=== PATIENT | female | born 1940 | race Two or more races ===

== ENCOUNTER 2021-07-18 11:02 | Outpatient (CLI) | payer MEDICARE, OTHER ==
[2021-07-18 14:53] LABS: BILIRUBIN,URINE NEGATIVE (NEGATIVE); COLOR,URINE YELLOW (YELLOW); LEUKOCYTE ESTERASE ,URINE SMALL (NEGATIVE); NITRITE, URINE NEGATIVE (NEGATIVE); PROTEIN,URINE NEGATIVE (NEGATIVE); UGLUCOSE NEGATIVE (NEGATIVE); UROBILINOGEN,URINE 0.2 EU/dL (0.2)
[2021-07-18 14:55] LABS: BASOPHILS # (AUTO) 0.1 K/uL (0.0-0.2); BASOPHILS % (AUTO) 0.8 % (0.0-2.0); EOSINOPHILS % (AUTO) 2.3 % (0.0-6.0); HEMATOCRIT 34 % (33-45); HEMOGLOBIN 11.2 g/dL (11.5-14.8); LYMPHOCYTES # (AUTO) 1.8 K/uL (0.8-4.8); LYMPHOCYTES % (AUTO) 30.3 % (20.0-44.0); MEAN CORPUSCULAR HGB CONC 33 g/dl (31.0-36.0); MEAN CORPUSCULAR VOLUME 83 fL (82-100); MONOCYTES # (AUTO) 0.5 K/uL (0.1-1.30); MONOCYTES % (AUTO) 7.8 % (2.0-12.0); NEUTROPHILS # (AUTO) 3.5 K/uL (1.8-8.9); NEUTROPHILS % (AUTO) 58.8 % (43.0-81.0); PLATELET COUNT (AUTO) 272 K/uL (150-450); RED BLOOD CELL COUNT(AUTO) 4.13 MIL/uL (4.0-5.2)
[2021-07-18 15:10] LABS: ALBUMIN 3.8 g/dL (3.4-5.0); BILIRUBIN,TOTAL 0.6 mg/dL (0.2-1.0); CREATININE 0.7 mg/dL (0.6-1.3); POTASSIUM 3.5 mmol/L (3.5-5.1); TOTAL PROTEIN, SERUM 7.6 g/dL (6.4-8.2)
[2021-07-18 15:43] LABS: BACTERIA,URINE Many /HPF (None Seen)
[2021-07-18 15:44] LABS: SQUAMOUS EPITHELIAL CELL,UR 0-2 /HPF (None Seen); WBC,URINE 21-50 /HPF (0-3)
== END 2021-07-18 23:59 | disposition home or self-care (01) ==
LOC: RAD 11:02
PROVIDERS: ATTEND Internal Medicine Interventional Cardiology
DX: I70.0 Atherosclerosis of aorta (principal); M47.814 Spondylosis without myelopathy or radiculopathy, thoracic region; I10 Essential (primary) hypertension; E11.9 Type 2 diabetes mellitus without complications; E78.5 Hyperlipidemia, unspecified; E03.9 Hypothyroidism, unspecified; D68.9 Coagulation defect, unspecified
CPT/HCPCS: 36415; 71046; 80053-TC; 80061-TC; 81001; 85025-TC; 85730-TC; 87086-TC

== ENCOUNTER 2022-01-23 10:52 | Outpatient (CLI) | payer MEDICARE, OTHER ==
[2022-01-23 12:12] LABS: BASOPHILS # (AUTO) 0.1 K/uL (0.0-0.2); BASOPHILS % (AUTO) 1.8 % (0.0-2.0); EOSINOPHILS % (AUTO) 2.6 % (0.0-6.0); HEMATOCRIT 27 % (33-45); HEMOGLOBIN 8.6 g/dL (11.5-14.8); LYMPHOCYTES # (AUTO) 1.8 K/uL (0.8-4.8); LYMPHOCYTES % (AUTO) 25.5 % (20.0-44.0); MEAN CORPUSCULAR HGB CONC 32 g/dl (31.0-36.0); MEAN CORPUSCULAR VOLUME 70 fL (82-100); MONOCYTES # (AUTO) 0.5 K/uL (0.1-1.30); MONOCYTES % (AUTO) 7.4 % (2.0-12.0); NEUTROPHILS # (AUTO) 4.4 K/uL (1.8-8.9); NEUTROPHILS % (AUTO) 62.7 % (43.0-81.0); PLATELET COUNT (AUTO) 456 K/uL (150-450); RED BLOOD CELL COUNT(AUTO) 3.78 MIL/uL (4.0-5.2)
[2022-01-23 12:55] LABS: ALANINE AMINOTRANSFERASE 18 U/L (12-78); ALBUMIN 3.1 g/dL (3.4-5.0); ALKALINE PHOSPHATASE 72 U/L (46-116); ASPARTATE AMINOTRANSFERASE 18 U/L (15-37); BILIRUBIN,TOTAL 0.4 mg/dL (0.2-1.0); CALCIUM, SERUM 8.9 mg/dL (8.5-10.1); CARBON DIOXIDE 31 mmol/L (21-32); CHLORIDE 107 mmol/L (98-107); CREATININE 0.8 mg/dL (0.6-1.3); GLUCOSE 108 mg/dL (74-106); POTASSIUM 4.2 mmol/L (3.5-5.1); SODIUM SERUM 143 mmol/L (136-145); TOTAL PROTEIN, SERUM 7.6 g/dL (6.4-8.2); UREA NITROGEN, BLOOD 14 mg/dL (7-18)
[2022-01-23 13:06] LABS: CHOLESTEROL 212 mg/dL (<200); FREE T4 (FREE THYROXINE) 1.06 ng/dL (0.76-1.46); HDL CHOLESTEROL 87 mg/dL (40-60); LDL 120 mg/dL (0-99); THYROID STIMULATING HORMONE 1.191 uIU/mL (0.358-3.74); TRIGLYCERIDES 49 mg/dL (30-150)
== END 2022-01-23 23:59 | disposition home or self-care (01) ==
LOC: LAB 10:52
PROVIDERS: ATTEND Internal Medicine Interventional Cardiology
DX: I10 Essential (primary) hypertension (principal); R53.83 Other fatigue; E78.5 Hyperlipidemia, unspecified
CPT/HCPCS: 36415; 80053-TC; 80061-TC; 84439-TC; 84443-TC; 85025-TC

== ENCOUNTER 2022-12-17 16:08 | Inpatient (IN) | payer MEDICARE, OTHER ==
[~2022-12-17] VITALS: Ht 160 cm; Wt 74.8 kg
[2022-12-17] MEDS ORDERED: IV NS 0.9% 1,000 ML BAG IV ONE (17:00)
[2022-12-17 17:32] LABS: APPEARANCE,URINE CLEAR (CLEAR); BILIRUBIN,URINE NEGATIVE (NEGATIVE); BLOOD, URINE NEGATIVE Ery/uL (NEGATIVE); COLOR,URINE YELLOW (YELLOW); KETONES,URINE NEGATIVE (NEGATIVE); LEUKOCYTE ESTERASE ,URINE NEGATIVE (NEGATIVE); NITRITE, URINE NEGATIVE (NEGATIVE); PROTEIN,URINE NEGATIVE (NEGATIVE); UGLUCOSE NEGATIVE (NEGATIVE)
[2022-12-17 17:39] LABS: CALCIUM, SERUM 8.7 mg/dL (8.5-10.1); CARBON DIOXIDE 23 mmol/L (21-32); CHLORIDE 106 mmol/L (98-107); CREATININE 0.6 mg/dL (0.6-1.3); GLUCOSE 107 mg/dL (74-106); INR 1.03 (0.91-1.10); PARTIAL THROMBOPLASTIN TIME 25.6 SEC (24.3-34.3); POTASSIUM 3.8 mmol/L (3.5-5.1); PROTHROMBIN TIME 10.9 SECS (9.2-11.1); SODIUM SERUM 139 mmol/L (136-145); UREA NITROGEN, BLOOD 9 mg/dL (7-18)
[2022-12-17 17:40] LABS: SERUM AMMONIA < 10 umol/L (11-32)
[2022-12-17 17:44] LABS: ADD URINE CULTURE NO; BACTERIA,URINE Few /HPF (None Seen); RBC,URINE NONE SEEN /HPF (0-2); WBC,URINE NONE SEEN /HPF (0-3)
[2022-12-17 17:46] LABS: ALBUMIN 2.3 g/dL (3.4-5.0); ALKALINE PHOSPHATASE 83 U/L (46-116); ASPARTATE AMINOTRANSFERASE 12 U/L (15-37); BILIRUBIN,DIRECT 0.1 mg/dL (0.0-0.2); BILIRUBIN,TOTAL 0.4 mg/dL (0.2-1.0); LACTIC ACID 1.2 mmol/L (0.4-2.0); TOTAL PROTEIN, SERUM 6.6 g/dL (6.4-8.2)
[2022-12-17 17:57] LABS: ALANINE AMINOTRANSFERASE 14 U/L (12-78)
[2022-12-17 18:09] LABS: THYROID STIMULATING HORMONE 2.141 uIU/mL (0.358-3.74)
[2022-12-17 18:11] LABS: BASOPHILS # (AUTO) 0.1 K/uL (0.0-0.2); BASOPHILS % (AUTO) 1.1 % (0.0-2.0); EOSINOPHILS # (AUTO) 0.2 K/uL (0.0-0.7); EOSINOPHILS % (AUTO) 2.5 % (0.0-6.0); HEMATOCRIT 31 % (33-45); HEMOGLOBIN 9.7 g/dL (11.5-14.8); LYMPHOCYTES # (AUTO) 1.8 K/uL (0.8-4.8); LYMPHOCYTES % (AUTO) 30.2 % (20.0-44.0); MEAN CORPUSCULAR HEMOGLOBIN 29 PG (26.0-33.0); MEAN CORPUSCULAR HGB CONC 31 g/dl (31.0-36.0); MEAN CORPUSCULAR VOLUME 91 fL (82-100); MONOCYTES # (AUTO) 0.8 K/uL (0.1-1.30); MONOCYTES % (AUTO) 13.5 % (2.0-12.0); NEUTROPHILS # (AUTO) 3.2 K/uL (1.8-8.9); NEUTROPHILS % (AUTO) 52.7 % (43.0-81.0); PLATELET COUNT (AUTO) 321 K/uL (150-450); WHITE BLOOD COUNT (AUTO) 6.1 K/uL (4.3-11.0)
[2022-12-17] MEDS ORDERED: FLUT1BLS IH (18:20)
[2022-12-17] MEDS ORDERED: LATA2.5D15 EACHEYE (18:20)
[2022-12-17] MEDS ORDERED: BRIM5DRO3 EACHEYE (18:20)
[2022-12-17] MEDS ORDERED: BISA10SU11 RC (18:20)
[2022-12-17] MEDS ORDERED: TOPI50TA24 PO (18:20)
[2022-12-17] MEDS ORDERED: ASCO-352 PO (18:20)
[2022-12-17] MEDS ORDERED: ATOR10TA PO (18:20)
[2022-12-17] MEDS ORDERED: TIMO5DRO35 EACHEYE (18:20)
[2022-12-17] MEDS ORDERED: MULT-447 PO (18:20)
[2022-12-17] MEDS ORDERED: ASPI-1169 PO (18:20)
[2022-12-17] MEDS ORDERED: NUTR237L18 PO (18:20)
[2022-12-17] MEDS ORDERED: ENOX40DI SQ (18:20)
[2022-12-17] MEDS ORDERED: POVI3780 TP (18:20)
[2022-12-17] MEDS ORDERED: PARO-64 PO (18:20)
[2022-12-17] MEDS ORDERED: ACET-868 PO (18:20)
[2022-12-17] MEDS ORDERED: MELA3TAB41 PO (18:20)
[2022-12-17] MEDS ORDERED: POLY17PO4 PO (18:20)
[2022-12-17] MEDS ORDERED: DOCU-141 PO (18:20)
[2022-12-17] MEDS ORDERED: Z GUARD REMEDY 4 OZ OINT TP PRN (20:30)
[2022-12-17] MEDS ORDERED: ZOLPIDEM TARTRATE 5 MG TABLET PO PRN (20:30)
[2022-12-17] MEDS ORDERED: ACETAMINOPHEN 325 MG TABLET PO PRN (20:30)
[2022-12-17] MEDS ORDERED: ONDANSETRON HCL/PF 4 MG/2 ML VIAL IVP PRN (20:30)
[2022-12-17 21:00] VITALS: BP 116/56; TEMP 98.2; O2SAT 97
[2022-12-17] MEDS: PIPERACILLIN /TAZOBACTAM 3.375 G in IV D5W 100 ML IV SCH (22:32)
[2022-12-17] MEDS: IV D5/0.45 NACL 1,000 ML IV PRN (22:46)
[2022-12-17] MEDS: VANCOMYCIN 0.75 GM in IV D5W 250 ML IV SCH (23:15)
[2022-12-18] MEDS ORDERED: PIPERACILLIN /TAZOBACTAM 4.5 G in IV D5W 50 ML IV SCH ×2
[2022-12-18] MEDS: PIPERACILLIN /TAZOBACTAM 3.375 G in IV D5W 100 ML IV SCH ×3 (04:19→20:34)
[2022-12-18 06:20] LABS: BASOPHILS # (AUTO) 0.1 K/uL (0.0-0.2); BASOPHILS % (AUTO) 1.2 % (0.0-2.0); EOSINOPHILS # (AUTO) 0.2 K/uL (0.0-0.7); HEMATOCRIT 27 % (33-45); HEMOGLOBIN 8.6 g/dL (11.5-14.8); LYMPHOCYTES # (AUTO) 1.4 K/uL (0.8-4.8); LYMPHOCYTES % (AUTO) 29.4 % (20.0-44.0); MEAN CORPUSCULAR HEMOGLOBIN 28 PG (26.0-33.0); MEAN CORPUSCULAR HGB CONC 32 g/dl (31.0-36.0); MEAN CORPUSCULAR VOLUME 88 fL (82-100); MONOCYTES # (AUTO) 0.6 K/uL (0.1-1.30); MONOCYTES % (AUTO) 12.7 % (2.0-12.0); NEUTROPHILS # (AUTO) 2.5 K/uL (1.8-8.9); NEUTROPHILS % (AUTO) 52.7 % (43.0-81.0); PLATELET COUNT (AUTO) 281 K/uL (150-450); RED BLOOD CELL COUNT(AUTO) 3.03 MIL/uL (4.0-5.2); RED CELL DISTRIBUTION WIDTH 17.4 % (11.5-15.0); WHITE BLOOD COUNT (AUTO) 4.7 K/uL (4.3-11.0)
[2022-12-18 06:44] LABS: ALANINE AMINOTRANSFERASE 10 U/L (12-78); ALBUMIN 1.8 g/dL (3.4-5.0); ALKALINE PHOSPHATASE 67 U/L (46-116); ASPARTATE AMINOTRANSFERASE 11 U/L (15-37); BILIRUBIN,TOTAL 0.4 mg/dL (0.2-1.0); CARBON DIOXIDE 23 mmol/L (21-32); CHLORIDE 110 mmol/L (98-107); CREATININE 0.6 mg/dL (0.6-1.3); GLUCOSE 132 mg/dL (74-106); POTASSIUM 3.2 mmol/L (3.5-5.1); SODIUM SERUM 140 mmol/L (136-145); TOTAL PROTEIN, SERUM 5.3 g/dL (6.4-8.2); UREA NITROGEN, BLOOD 6 mg/dL (7-18)
[2022-12-18 08:00] VITALS: BP 109/60; TEMP 97.9; O2SAT 96
[2022-12-18] MEDS ORDERED: POTASSIUM CHLORIDE 20 MEQ POWDER PACKET PO ONE (09:00)
[2022-12-18] MEDS: VANCOMYCIN 0.75 GM in IV D5W 250 ML IV SCH ×2 (09:16→22:21)
[2022-12-18 16:00] VITALS: BP 108/38; TEMP 98.9; O2SAT 98
[2022-12-18 20:00] VITALS: BP 131/98; TEMP 99.1; O2SAT 95
[2022-12-18] MEDS: IV D5/0.45 NACL 1,000 ML IV PRN (22:00)
[2022-12-19] MEDS: PIPERACILLIN /TAZOBACTAM 3.375 G in IV D5W 100 ML IV SCH ×3 (04:12→21:54)
[2022-12-19 06:59] LABS: CALCIUM, SERUM 8.2 mg/dL (8.5-10.1); CREATININE 0.7 mg/dL (0.6-1.3); POTASSIUM 3.7 mmol/L (3.5-5.1)
[2022-12-19 08:00] VITALS: BP 116/71; TEMP 97.7; O2SAT 98
[2022-12-19] MEDS: VANCOMYCIN 0.75 GM in IV D5W 250 ML IV SCH ×2 (09:59→23:05)
[2022-12-19] MEDS ORDERED: BISACODYL SUPP (10 MG) 10 MG/SUPP.RECT SUPP.RECT RC PRN (10:00)
[2022-12-19] MEDS ORDERED: ACETAMINOPHEN 325 MG TABLET PO PRN (10:00)
[2022-12-19 16:00] VITALS: BP 115/70; TEMP 98.6; O2SAT 96
[2022-12-19] MEDS: DOCUSATE SODIUM LIQ 100 MG/10 ML UDC PO SCH (16:40)
[2022-12-19] MEDS: PROSOURCE / PROSTAT (PYXIS) 30 ML UDC PO SCH (16:41)
[2022-12-19] MEDS: BRIMONIDINE TARTRATE OPHT SOLN 5 ML BOTTLE EACHEYE SCH (16:41)
[2022-12-19] MEDS: TIMOLOL 0.5% SOLN OPHTH 5 ML BOTTLE EACHEYE SCH (16:41)
[2022-12-19] MEDS ORDERED: DOCUSATE SODIUM 100 MG CAPSULE PO SCH (17:00)
[2022-12-19 20:00] VITALS: BP 75/50; TEMP 97.5; O2SAT 97
[2022-12-19] MEDS: LATANOPROST EYE DROP 0.005% 2.5 ML BOTTLE EACHEYE SCH (22:21)
[2022-12-19] MEDS: ATORVASTATIN 10 MG TABLET PO SCH (23:04)
[2022-12-20 04:00] VITALS: BP 101/66; TEMP 98; O2SAT 99
[2022-12-20] MEDS: PIPERACILLIN /TAZOBACTAM 3.375 G in IV D5W 100 ML IV SCH ×3 (05:30→21:04)
[2022-12-20] MEDS: IV D5/0.45 NACL 1,000 ML IV PRN (06:16)
[2022-12-20 07:24] LABS: CALCIUM, SERUM 8.1 mg/dL (8.5-10.1); CARBON DIOXIDE 21 mmol/L (21-32); CHLORIDE 111 mmol/L (98-107); CREATININE 0.6 mg/dL (0.6-1.3); GLUCOSE 114 mg/dL (74-106); POTASSIUM 2.9 mmol/L (3.5-5.1); SODIUM SERUM 141 mmol/L (136-145); UREA NITROGEN, BLOOD 9 mg/dL (7-18)
[2022-12-20 08:00] VITALS: BP 96/61; TEMP 98.2; O2SAT 98
[2022-12-20] MEDS ORDERED: POTASSIUM CHLORIDE 20 MEQ TAB.PRT.SR PO ONE (08:00)
[2022-12-20 08:43] LABS: BASOPHILS # (AUTO) 0.1 K/uL (0.0-0.2); EOSINOPHILS # (AUTO) 0.4 K/uL (0.0-0.7); EOSINOPHILS % (AUTO) 7.5 % (0.0-6.0); HEMATOCRIT 28 % (33-45); HEMOGLOBIN 8.6 g/dL (11.5-14.8); LYMPHOCYTES # (AUTO) 1.5 K/uL (0.8-4.8); LYMPHOCYTES % (AUTO) 28.2 % (20.0-44.0); MEAN CORPUSCULAR HEMOGLOBIN 28 PG (26.0-33.0); MEAN CORPUSCULAR HGB CONC 31 g/dl (31.0-36.0); MEAN CORPUSCULAR VOLUME 91 fL (82-100); MONOCYTES # (AUTO) 0.9 K/uL (0.1-1.30); MONOCYTES % (AUTO) 15.5 % (2.0-12.0); NEUTROPHILS # (AUTO) 2.6 K/uL (1.8-8.9); NEUTROPHILS % (AUTO) 47.8 % (43.0-81.0); PLATELET COUNT (AUTO) 253 K/uL (150-450); RED BLOOD CELL COUNT(AUTO) 3.03 MIL/uL (4.0-5.2); WHITE BLOOD COUNT (AUTO) 5.5 K/uL (4.3-11.0)
[2022-12-20] MEDS: FLUTICASONE/VILANTEROL 1 EACH BLST.W.DEV IH SCH ×2 (09:00→09:42)
[2022-12-20] MEDS: PROSOURCE / PROSTAT (PYXIS) 30 ML UDC PO SCH ×3 (09:00→16:56)
[2022-12-20] MEDS: TOPIRAMATE 25 MG TABLET PO SCH (09:40)
[2022-12-20] MEDS: POLYETHYLENE GLYCOL 3350 17 GM POWD.PACK PO SCH (09:40)
[2022-12-20] MEDS: PAROXETINE HCL 20 MG TABLET PO SCH (09:40)
[2022-12-20] MEDS: ASCORBIC ACID 500 MG TABLET PO SCH (09:41)
[2022-12-20] MEDS: ASPIRIN 81 MG TAB.CHEW PO SCH (09:41)
[2022-12-20] MEDS: BRIMONIDINE TARTRATE OPHT SOLN 5 ML BOTTLE EACHEYE SCH ×2 (09:42→16:56)
[2022-12-20] MEDS: DOCUSATE SODIUM LIQ 100 MG/10 ML UDC PO SCH ×2 (09:42→16:56)
[2022-12-20] MEDS: TIMOLOL 0.5% SOLN OPHTH 5 ML BOTTLE EACHEYE SCH ×2 (09:43→16:56)
[2022-12-20] MEDS: ENOXAPARIN SODIUM 40 MG/0.4 ML DISP.SYRIN SQ SCH (09:45)
[2022-12-20] MEDS: VANCOMYCIN 0.75 GM in IV D5W 250 ML IV SCH ×2 (10:24→22:22)
[2022-12-20 12:00] VITALS: BP 106/68; TEMP 98.4; O2SAT 92
[2022-12-20 16:00] VITALS: BP 126/72; TEMP 97.3; O2SAT 96
[2022-12-20 20:00] VITALS: BP_SYST 103; BP_SYST 98; BP_DIAS 68; BP_DIAS 73; TEMP 97.7; TEMP 98.8; O2SAT 95; O2SAT 96
[2022-12-20] MEDS: ATORVASTATIN 10 MG TABLET PO SCH (22:21)
[2022-12-20] MEDS: LATANOPROST EYE DROP 0.005% 2.5 ML BOTTLE EACHEYE SCH (22:21)
[2022-12-21] VITALS: BP 96/50; TEMP 98.8; O2SAT 96
[2022-12-21] MEDS: PIPERACILLIN /TAZOBACTAM 3.375 G in IV D5W 100 ML IV SCH ×2 (04:40→13:44)
[2022-12-21 06:31] LABS: CALCIUM, SERUM 8.3 mg/dL (8.5-10.1); CARBON DIOXIDE 20 mmol/L (21-32); CHLORIDE 110 mmol/L (98-107); CREATININE 0.7 mg/dL (0.6-1.3); GLUCOSE 124 mg/dL (74-106); POTASSIUM 3.4 mmol/L (3.5-5.1); SODIUM SERUM 139 mmol/L (136-145); UREA NITROGEN, BLOOD 12 mg/dL (7-18)
[2022-12-21 08:00] VITALS: BP 103/76; TEMP 97.5; O2SAT 97
[2022-12-21] MEDS: ENOXAPARIN SODIUM 40 MG/0.4 ML DISP.SYRIN SQ SCH (09:00)
[2022-12-21] MEDS: FLUTICASONE/VILANTEROL 1 EACH BLST.W.DEV IH SCH ×3 (09:00→15:09)
[2022-12-21] MEDS: POTASSIUM CHLORIDE 20 MEQ TAB.PRT.SR PO ONE ×2 (09:30→10:05)
[2022-12-21] MEDS: POLYETHYLENE GLYCOL 3350 17 GM POWD.PACK PO SCH (10:05)
[2022-12-21] MEDS: ASCORBIC ACID 500 MG TABLET PO SCH (10:05)
[2022-12-21] MEDS: ASPIRIN 81 MG TAB.CHEW PO SCH (10:05)
[2022-12-21] MEDS: DOCUSATE SODIUM LIQ 100 MG/10 ML UDC PO SCH ×2 (10:05→17:00)
[2022-12-21] MEDS: PAROXETINE HCL 20 MG TABLET PO SCH (10:05)
[2022-12-21] MEDS: TOPIRAMATE 25 MG TABLET PO SCH (10:06)
[2022-12-21] MEDS: VANCOMYCIN 0.75 GM in IV D5W 250 ML IV SCH (10:12)
[2022-12-21] MEDS: BRIMONIDINE TARTRATE OPHT SOLN 5 ML BOTTLE EACHEYE SCH ×2 (10:13→17:00)
[2022-12-21] MEDS: TIMOLOL 0.5% SOLN OPHTH 5 ML BOTTLE EACHEYE SCH ×2 (10:14→17:00)
[2022-12-21] MEDS: PROSOURCE / PROSTAT (PYXIS) 30 ML UDC PO SCH ×2 (10:14→17:00)
[2022-12-21 11:53] VITALS: BP 95/59; TEMP 99.1; O2SAT 97
[2022-12-21] MEDS: POTASSIUM CL. PREMIX PERIPHER. 50 ML IV SCH ×4 (12:44→16:46)
[2022-12-21 16:07] VITALS: BP 138/89; TEMP 98.6; O2SAT 97
== END 2022-12-21 19:25 | DRG 193 ==
LOC: ER 16:14 → MED 20:45 → TELE 12-20 02:00
PROVIDERS: ADMIT Internal Medicine; ATTEND Internal Medicine
DX: J15.9 Unspecified bacterial pneumonia (principal); G93.41 Metabolic encephalopathy; F03.93 Unspecified dementia, unspecified severity, with mood disturbance; E78.5 Hyperlipidemia, unspecified; R62.7 Adult failure to thrive; L89.159 Pressure ulcer of sacral region, unspecified stage; F29 Unspecified psychosis not due to a substance or known physiological condition; F32.A Depression, unspecified; I11.9 Hypertensive heart disease without heart failure; M19.90 Unspecified osteoarthritis, unspecified site; Z91.81 History of falling; Z87.81 Personal history of (healed) traumatic fracture; Z88.8 Allergy status to other drugs, medicaments and biological substances; Z79.01 Long term (current) use of anticoagulants; Z79.51 Long term (current) use of inhaled steroids; Z79.82 Long term (current) use of aspirin; Z79.899 Other long term (current) drug therapy; I35.0 Nonrheumatic aortic (valve) stenosis; J98.4 Other disorders of lung; H50.00 Unspecified esotropia
CPT/HCPCS: 36415; 70450-TC; 71045-TC; 80048-TC; 80053-TC; 80076-TC; 80202-TC; 81001; 82140-TC; 82607-TC; 83605-TC; 83921; 84443-TC; 84484-TC; 85025-TC; 85730-TC; 87040-TC; 87081-TC; 87086-TC; 92526; 92611-TC; 97110-TC; 97112-TC; A4223; A6403; G0378; J1650; J2543; J3370; J3480; J3490; J7030; J7040; J7060